=== PATIENT | female | born 1960 | race Caucasian/White ===

== ENCOUNTER → 2020-04-08 12:03 | Outpatient (CLI) | payer OTHER, SELFPAY ==
[2020-04-09 18:04] LABS: COVID19 Sendout Not Detected (Not Detect)
== END ==
PROVIDERS: Visit Provider Physician Assistant
DX: Z11.59 Encounter for screening for other viral diseases (principal)
CPT/HCPCS: 87635

== ENCOUNTER 2020-04-11 09:44 | Day surgery (SDC) | payer OTHER, SELFPAY ==
--- NOTE | 2020-04-11 | PATH_ITS ---
[facility] Accession Number: [id number] . 01 Material submitted: . colon - COLON POLYP AT 20 CM . 02 Diagnosis: Colon, Polyp at 20 cm, Biopsy: Hyperplastic polyp. MRV 04/13/2020 1129 Local . 02 Electronically signed: . Indira Villatoro MD, Pathologist NPI- [id number] . 01 Gross description: . COLON POLYP AT 20 CM: Received in formalin are 2 fragment(s) of toure, soft tissue measuring 0.1 x 0.1 x 0.1 cm to 0.3 x 0.2 x 0.2 cm submitted entirely in 1 cassette(s) /TANIKA 04/12/20207 Local . 02 Pathologist provided ICD-10: K63.5 . 02 CPT . 768097 Performed at: 01 [facility] [address] [id number] MD Torsten Antonio MD Phone: [phone] Performed at: 02 [facility] [address] [place], [place] [id number] MD Indira Villatoro MD Phone: [phone]
[2020-04-11] MEDS: LACTATED RINGERS 1,000 ML 200 ML IV (10:04)
[2020-04-11 10:05] VITALS: BP 126/82; PULSE 95; RESP 16; TEMP 36.8; O2SAT 98; BMI 30.9
--- NOTE | 2020-04-11 10:05 | PM.HP.1 ---
History of Present Illness History of Present Illness Date Patient Seen: 04/11/20 Time Patient Seen: 10:05 Chief complaint: [id number] Narrative: The patient is a woman here for a screening colonoscopy. Her last exam was about 8 years ago. Her mother had colon cancer and she has had polyps removed. Patient History Medical History (Updated 04/11/20 @ 10:11 by Kervin Callahan MD) Anxiety (Acute) Depression (Acute) Surgical History (Updated 04/11/20 @ 10:11 by Kervin Callahan MD) Status post bunionectomy (Acute) Family & Social History Family History (Updated 04/11/20 @ 10:10 by Kervin Callahan MD) Mother Cancer Father No problems noted. Meds Home Medications and Allergies Allergies Allergy/AdvReac Type Severity Reaction Status Date / Time No Known Drug Allergies Allergy Unverified 04/08/20 12:02 Review of Systems Review of Systems ROS: Yes All systems reviewed with the patient and are negative except as otherwise documented Exam Narrative Exam Narrative: Cooperative no apparent distress her lungs are clear to auscultation no rales or rhonchi heart regular rate and rhythm without murmur gallop. Abdomen is soft nontender without mass. Patient is alert and oriented. Assessment & Plan Assessment & Plan narrative: Patient is here for screening examination for colon cancer. She is in high risk group due to her family history and personal history. I have discussed the procedure and the rationale with the patient including risks of bleeding, perforation which would necessitate a major operation, failure to find remove all lesions and the potential to tattoo. They appeared to understand and wished to proceed.
--- NOTE | 2020-04-11 10:14 | PM.PREOP ---
Pre-operative Note COVID-19 COVID-19 status: Negative Result date/Date tested (Pos, Neg/Pending): 04/08/20 Interval Note History & Physical reviewed/Exam performed by Physician: Yes Changes to H&P: No ASA Class (for procedural sedation): I
[2020-04-11] MEDS: ONDANSETRON 4 MG/2 ML INJ IV (10:56)
[2020-04-11] MEDS: fentaNYL 250 MCG/5 ML INJ IV (11:06)
[2020-04-11] MEDS: MIDAZOLAM 5 MG/5 ML VIAL IV (11:06)
[2020-04-11 11:24] VITALS: BP 118/67; PULSE 88; RESP 10; TEMP 36.7; O2SAT 95
[2020-04-11 11:29] VITALS: BP 116/70; PULSE 84; RESP 14; O2SAT 95
[2020-04-11 11:34] VITALS: BP 114/58; PULSE 84; RESP 11; TEMP 36.6; O2SAT 95
[2020-04-11 11:45] VITALS: BP 112/73; PULSE 80; RESP 14; TEMP 36.4; O2SAT 95
--- NOTE | 2020-04-11 12:12 | PM.OP.ENDO ---
Operative Date/Time/Diagnoses Date of procedure: 04/11/20 Time of procedure: 11:20 Pre-op diagnosis: Personal history of polyps. Family history of colon cancer. Post-op diagnosis: same (One tiny polyp at 20 cm from the anal verge. Sigmoid diverticulosis) Procedure & Clinicians Study performed: Colonoscopy with cold biopsy Same procedure as scheduled: Yes Indications: Screening. Last exam 8 years ago. Mother with colon cancer and personal history of polyps. Surgeon: Kervin Callahan Procedure Notes SCOAP/Timeout: Performed Procedure in detail: The patient was placed in the left lateral decubitus position and underwent IV sedation directed by the surgeon consisting of fentanyl and Versed. Digital exam was unremarkable. The scope was inserted and advanced through the rectum into the sigmoid, descending, transverse, and ascending colon. Patient was noted to have says a few sigmoid diverticuli. There was no inflammation.. The cecum was reached identified by the ileocecal valve and the appendiceal opening. The ileocecal valve was successfully cannulated. The terminal ileum was normal in appearance. The scope was gradually brought out. One Polyp was found at about 20 cm from the anal verge. This was biopsied and removed. It was tiny.. The scope ultimately was retroflexed in the rectum. The appearance was normal. The scope was removed and the patient tolerated the procedure well. Prep was good. Scope withdrawal time: 7 minutes(8 total) Sedation minutes: 21 Findings: diverticulosis (Sigmoid) and polyp (One tiny rectal polyp) Specimen(s): other (Polyp) Complications: none Post-procedure Recommendations: Colonscopy in 5 years (Due to personal history of polyps and family history of colon cancer) Follow up: as needed Disposition: PACU
== END 2020-04-11 12:05 | disposition home or self-care (01) ==
PROVIDERS: PCP Nurse Practitioner Family; Referring Provider Specialist; Visit Provider Specialist
PROC: 0DJD8ZZ Inspection of Lower Intestinal Tract, Via Natural or Artificial Opening Endoscopic (ICD-10-PCS; CPT 45378; principal; 2020-04-11 10:45)
DX: Z12.11 Encounter for screening for malignant neoplasm of colon (principal); Z86.010 Personal history of colon polyps; Z80.0 Family history of malignant neoplasm of digestive organs; K57.30 Diverticulosis of large intestine without perforation or abscess without bleeding; F32.9 Major depressive disorder, single episode, unspecified; F41.9 Anxiety disorder, unspecified; K63.5 Polyp of colon
CPT/HCPCS: 45380; 99152; J2250; J2405; J3010

== ENCOUNTER → 2024-05-13 19:07 | Outpatient (CLI) | payer OTHER, SELFPAY ==
--- NOTE | 2024-05-13 19:09 | DI.MRI.S_ITS ---
PROCEDURE: MR ORBITS FACE NECK WO CON INDICATIONS: FALL, INJURY TO FACE TECHNIQUE: Noncontrast sagittal T1 spin echo, axial FLAIR, axial gradient echo, axial diffusion and ADC acquired through the brain. Coronal STIR, thin-slice axial T1 spin echo through the orbits. After the administration of contrast, thin-slice axial and coronal T1 spin echo with fat saturation through the orbits, axial and coronal and sagittal T1 spin echo with fat saturation through the brain. COMPARISON: None. FINDINGS: Image quality: Excellent. No acute findings within the head or neck. No evidence of facial trauma. The nasopharynx, oropharynx and hypopharynx are clear. No mucosal lesions. The trachea is patent. The visualized intracranial contents are within normal limits. Orbits are unremarkable. The paranasal sinuses are clear. Mild degenerative changes of the cervical spine. Otherwise, the osseous structures are within normal limits. No significant thyroid abnormalities. No enlarged cervical lymph nodes. IMPRESSION: No posttraumatic abnormalities are identified. No acute findings within the head or neck. Dictated by: Terrell Grider M.D. on 05/14/2024 at 14:47 Approved by: Terrell Grider M.D. on 05/14/2024 at 15:12
== END ==
LOC: MRI 19:09
PROVIDERS: Referring Provider Student in an Organized Health Care Education/Training Program; Visit Provider Student in an Organized Health Care Education/Training Program
DX: S09.93XA Unspecified injury of face, initial encounter (principal); M47.812 Spondylosis without myelopathy or radiculopathy, cervical region; W19.XXXA Unspecified fall, initial encounter
CPT/HCPCS: 70540